=== PATIENT | male | born 1970 | race Caucasian/White ===

== ENCOUNTER 2017-10-19 21:53 | Emergency (ER) | payer OTHER ==
--- NOTE | 2017-10-20 01:36 | ED ---
Shortness of Breath - HPI Summary HPI Summary: Complains of one episode of shortness of breath for the cycle of one breath, which then resolved, followed by anxiety attack. Anxiety attack resolved with Xanax. Patient states he has is at baseline here in the ED, but concerned about the episode of shortness of breath. Denies fever, cough, sore throat, CP , N/V/D, abdomen pain, change in urinary BM. Denies prior cardiac or pulmonary history. Medical history is DM, HTN. Nonsmoker, denies EtOH or recreational drug use. Negative family cardiac history. Denies history of blood clots, recent trauma or surgery. - History of Current Complaint Chief Complaint: EDGeneral Time Seen by Provider: 10/20/17 00:45 Hx Obtained From: Patient Onset/Duration: Sudden Onset Current Severity: None Dyspnea At: Rest - Allergy/Home Medications Allergies/Adverse Reactions: Allergies Allergy/AdvReac Type Severity Reaction Status Date / Time No Known Allergies Allergy Verified 10/19/17 22:27 PMH/Surg Hx/FS Hx/Imm Hx Infectious Disease History: No Infectious Disease History: Denies: Traveled Outside the [place] in Last 30 Days - Social History Alcohol Use: None Substance Use Type: Reports: None Smoking Status (MU): Never Smoked Tobacco Review of Systems Constitutional: Negative Eyes: Negative ENT: Negative Cardiovascular: Negative Positive: Shortness Of Breath Gastrointestinal: Negative Genitourinary: Negative Musculoskeletal: Negative Skin: Negative Neurological: Negative Psychological: Normal All Other Systems Reviewed And Are Negative: Yes Physical Exam Triage Information Reviewed: Yes Vital Signs On Initial Exam: Initial Vitals Temp Pulse Resp BP Pulse Ox 99.0 F 95 16 158/92 100 10/19/17 22:20 10/19/17 22:20 10/19/17 22:20 10/19/17 22:20 10/19/17 22:20 Vital Signs Reviewed: Yes Appearance: Positive: Well-Appearing Skin: Positive: Warm Head/Face: Positive: Normal Head/Face Inspection Eyes: Positive: Normal Neck: Positive: Supple Respiratory/Lung Sounds: Positive: Clear to Auscultation Cardiovascular: Positive: Normal Abdomen Description: Positive: Nontender Musculoskeletal: Positive: Normal Neurological: Positive: Normal Psychiatric: Positive: Normal AVPU Assessment: Alert - Lillie Coma Scale Best Eye Response: 4 - Spontaneous Best Motor Response: 6 - Obeys Commands Best Verbal Response: 5 - Oriented Coma Scale Total: 15 Diagnostics - Vital Signs Vital Signs Temp Pulse Resp BP Pulse Ox 10/19/17 22:20 99.0 F 95 16 158/92 100 - Laboratory Lab Statement: Any lab studies that have been ordered have been reviewed, and results considered in the medical decision making process. Re-Evaluation - Re-Evaluation 1 Re-Evaluation Time: 01:33 Comment: Patient states he is back at baseline. Course/Dx - Course Course Of Treatment: Complains of shortness of breath for a cycle of one breath. Followed by anxiety attack. Shortness of breath resolved after one breath, anxiety resolved after Xanax. Patient was just concerned about that shortness of breath. Patient states he is at baseline now. EKG and chest x- ray unremarkable. Vital signs within normal limits. No prior cardiac or pulmonary history. History of anxiety attacks - Diagnoses Provider Diagnoses: Anxiety Discharge - Sign-Out/Discharge Documenting (check all that apply): Discharge/Admit/Transfer - Discharge Plan Condition: Stable Disposition: HOME Patient Education Materials: Anxiety (ED) Referrals: Selina Paige NP [Primary Care Provider] - Additional Instructions: Follow-up with primary care. Return to the ED for any new or worsening symptoms - Billing Disposition and Condition Condition: STABLE Disposition: HOME
[2017-10-20 01:41] VITALS: BP 143/85
--- NOTE | 2017-10-20 07:46 | RAD ---
INDICATION: Shortness of breath. COMPARISON: There are no prior studies available for comparison. TECHNIQUE: A portable view of the chest was obtained. FINDINGS: Cardiac and mediastinal contours appear to be within normal limits. The lungs are clear. No pleural effusion is seen. IMPRESSION: NO EVIDENCE FOR ACUTE DISEASE.
== END 2017-10-20 01:39 | disposition home or self-care (01) ==
LOC: ED 21:53
DX: F41.9 Anxiety disorder, unspecified (principal)
CPT/HCPCS: 71045; 93005; 99282